=== PATIENT | male | born 1970 | race Hispanic/Latino ===

== ENCOUNTER 2021-08-21 21:23 | Emergency (ER) | payer SELFPAY ==
[~2021-08-21] VITALS: Ht 165.1 cm; Wt 111.0 kg
[~2021-08-21 21:23] MED LIST: BACTRIM DS1 TAB PO; CEPHALEXIN500 MG PO; LORTAB 1010 MG PO
[2021-08-21] MEDS ORDERED: TRAMADOL HCL50 MG PO ×2 (22:40→22:56)
[2021-08-21] MEDS ORDERED: DOXYCYCLINE100 MG PO (22:40)
[2021-08-21 22:45] VITALS: BP 199/94
[2021-08-25] MEDS ORDERED: LISINOPRIL40 MG PO (08:17)
[2021-08-25] MEDS ORDERED: METFORMIN HCL500 M2 PO (08:17)
== END 2021-08-21 22:54 | disposition home or self-care (01) | DRG 603 ==
LOC: ED 21:23
PROC: 0H98XZZ Drainage of Buttock Skin, External Approach (ICD-10-PCS; principal; 2021-08-21)
DX: L02.31 Cutaneous abscess of buttock (principal); I10 Essential (primary) hypertension; E11.9 Type 2 diabetes mellitus without complications